=== PATIENT | female | born 1985 | race Hispanic/Latino ===

== ENCOUNTER 2020-02-29 15:20 | Inpatient (IN) | payer OTHER ==
[2020-02-29] MEDS ORDERED: Promethazine HCl 25 MG/ML VIAL IM PRN ×2 (16:05→20:05)
[2020-02-29] MEDS ORDERED: Butorphanol Tartrate 1 MG/ML VIAL SLOW IVP PRN ×2 (16:05→20:05)
[2020-02-29] MEDS ORDERED: hydrALAZINE 20 MG/ML VIAL SLOW IVP PRN ×2 (16:05→20:05)
[2020-02-29] MEDS ORDERED: Ondansetron PF 4 MG/2 ML Vial IVP PRN ×2 (16:05→20:05)
[2020-02-29] MEDS ORDERED: Lactated Ringer's 1,000 ML IV SCH (16:15)
[2020-02-29] MEDS: NIFEdipine 10 MG CAP PO SCH ×3 (16:43→17:27)
[2020-02-29] MEDS: Lactated Ringer's 1,000 ML IV SCH (16:46)
[2020-02-29 16:48] LABS: Hemoglobin 13.9 g/dL (12.0-16.0); Mean Corpuscular HGB CONC 35.3 g/dL (32.0-36.0); Mean Corpuscular Hemoglobin 33.6 pg (27.0-31.0); Mean Corpuscular Volume 95.2 fL (78.0-98.0); Mean Platelet Volume 8.1 fL (7.4-10.4); Platelet Count 221 thou/uL (130-400); RBC Distribution Width 11.6 % (11.5-14.5); Red Blood Cell (RBC) Count 4.15 mill/uL (4.20-5.40); White Blood Cell (WBC) Count 17.1 thou/uL (4.8-10.8)
[2020-02-29 17:25] VITALS: BMI 25.7
[2020-02-29 17:29] LABS: HBSAg Index 0.19 S/CO (0-0.99); Hep B Surf Ag Non-Reactive S/CO (NonReactive); Syphilis Antibody Nonreactive (Nonreactive); Syphilis Antibody Index 0.06 S/CO (<1.00 Non-Reactive)
--- NOTE | 2020-02-29 19:41 | PDOC.LDHP ---
Labor and Delivery H&P Chief complaint: contractions HPI: Patient was seen at [facility] for routine PNV. At the time she reported contractions that started yesterday at work and worsening last night when she was home. She states her stomach is tight and hard and she also has middle back pain. It is coming and going but feels hard most of the time. She had a PTL workup completed at [facility] to include a UA, CL, fFN, and a dose of betamethosone. She sent to L&D due to contractions every 1.2 mins in office. Current gestational age (weeks): 28 Due date: 05/18/20 Dating criteria: last menstrual period Grav: 1 Para: 0 Current complications: other ( contractions) Abnormal US findings: No Current medications: pre- vitamins Previous surgical history: other ([place] tooth extraction) Allergies/Adverse Reactions: Allergies Allergy/AdvReac Type Severity Reaction Status Date / Time No Known Allergies Allergy Verified 02/29/20 16:22 Social history: none - Physical Exam Vital signs reviewed and normal: yes General: NAD Lungs: nonlabored breathing Abdomen: gravid FHT: category 1 Fowler contractions every: 2-3 mins - Vaginal Exam cm dilated: 2 Effacement: 50% Station: -3 - OB Labs Blood type: O RH: positive Antibody Screen: negative HIV: negative RPR: negative HEPSAg: negative GBS: unknown Urine drug screen: negative Additional Labs: CL 2.74, no funneling UA Neg fFN - Neg. VPIII - pending - Assessment premature contractions BREECH presentation - Plan Plan: observation in L&D -: Steroids given at 1454 x1. Repeat dose in 24 hours. [facility] for neuroprotection with evidence of cervical change Nifedipine labor protocol 1L IV bolus and 125mL/hr after I have consulted with Dr. Maurice the OB hospitalist and he agrees with POC.
[2020-02-29 19:43] LABS: SARS-CoV-2 NAA Rapid Test Not Detected (NotDetected)
[2020-02-29] MEDS ORDERED: Magnesium Sulfate 20 gm/500 ml 20 GM/500 ML BAG ONE (19:53)
[2020-02-29] MEDS ORDERED: Calcium Gluc 4.6 MEQ/10 ML (100 MG/ML) SLOW IVP PRN (20:05)
[2020-02-29] MEDS ORDERED: Lidocaine 1% (PF) 30 ML VIAL SC PRN (20:05)
[2020-02-29] MEDS ORDERED: Magnesium Sulfate 20 GM/WATER 500 ML BAG IVPB SCH (20:15)
[2020-02-29] MEDS: Magnesium Sulfate 20 gm/500 ml 20 GM/500 ML BAG IVPB SCH (20:17)
[2020-02-29] MEDS ORDERED: Penicillin G Potassium 5 MILL.UNITS in Sodium Chloride 0.9% 100 ML IVPB SCH (20:30)
[2020-03-01] MEDS: NIFEdipine 10 MG CAP PO SCH ×6 (00:26→22:44)
[2020-03-01] MEDS: Penicillin G 2.5 MILL.units 2.5 MILL.UNITS in Premix Bag 1 BAG IVPB SCH ×5 (01:17→18:24)
[2020-03-01] MEDS: Magnesium Sulfate 20 gm/500 ml 20 GM/500 ML BAG IVPB SCH ×3 (04:32→14:19)
[2020-03-01] MEDS: Lactated Ringer's 1,000 ML IV SCH ×8 (04:35→22:44)
--- NOTE | 2020-03-01 07:59 | CON ---
DATE OF CONSULTATION: 03/01/2020 TIME OF SERVICE: 0715 hours. CONSULTING PHYSICIAN: Richard Maurice MD REASON FOR CONSULTATION: labor, 28 weeks 6 days. 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 She was seen by Divya Dominguez at her clinic yesterday afternoon, complaining of contractions. She was noted to have a shortened cervix at 2.5-3 cm with palpable contractions and was sent over for evaluation. Upon presentation to Labor and Delivery, she was found to have a cervix that was 250 and -3, digitally cindy breech presentation. The patient underwent IV hydration and nifedipine for contractions, which were unsuccessful in complete cessation. She received first dose of betamethasone in the office yesterday at 1450 hours. SIGN FABRICATOR HISTORY: Primigravida. Blood type O positive. Antibody negative. Pap negative. Rubella immune. VDRL nonreactive. Hepatitis B, GC, chlamydia negative. Normal NIPT. EDC 05/18/2020. PAST MEDICAL HISTORY: None. PAST SURGICAL HISTORY: [place]. ALLERGIES: DENIES. MEDICATIONS: vitamins. SOCIAL HISTORY: Denies tobacco, alcohol, or IV drug abuse. FAMILY HISTORY: Noncontributory. REVIEW OF SYSTEMS: Noncontributory. PHYSICAL EXAMINATION: GENERAL: White female, resting comfortably at this time. VITAL SIGNS: Blood pressure 122/82, pulse 85, respirations 18, and temperature 98.1. HEENT: Within normal limits LUNGS: Clear to auscultation bilaterally. HEART: Regular rate and rhythm. ABDOMEN: Soft, nontender. Fundal height 29. FHTs 140s. Vulva, without lesions. Vagina, without discharge. Cervix 2, 50, -2, RN exam. EXTREMITIES: Without clubbing, cyanosis, or edema. LABORATORY DATA: White count 17.1, hematocrit 39.5. Magnesium 6.1 this morning. COVID negative. Hepatitis B, negative. Syphilis, negative. The patient did not respond to IV hydration. I was consulted and instructed to go ahead and proceed with magnesium sulfate for neuro protection as well as group B strep prophylaxis. The patient was given penicillin per protocol and magnesium per protocol over approximately the last 11 to 12 hours. PLAN: Continue magnesium and antibiotics until second dose of corticosteroids are given. At that point in time, would consider discontinuation and observation in hospital. If infant was noted to be in breech presentation, would proceed with primary delivery if labor advances. Would be eligible for rescue dose of corticosteroids at approximately 32-1/2 weeks if continues and worries for labor continue. Job ID: [id number]
[2020-03-01 12:05] LABS: ALT (SGPT) 12 U/L (8-55); AST (SGOT) 17 U/L (5-34); Albumin 3.5 g/dL (3.5-5.0); Alkaline Phosphatase 110 U/L (40-110); Anion Gap 14 mmol/L (10-20); BUN (Urea Nitrogen) 5 mg/dL (7.0-18.7); Bilirubin, Total 0.6 mg/dL (0.2-1.2); Calc. Creatinine Clearance 155 mL/min (70-130); Calcium 6.7 mg/dL (7.8-10.44); Carbon Dioxide 19 mmol/L (22-29); Chloride 100 mmol/L (98-107); Estimated GFR-MDRD Greater than 90; Globulin 2.9 g/dL (2.4-3.5); Glucose 118 mg/dL (70-105); Magnesium 6.2 mg/dL (1.6-2.6); Potassium 3.3 mmol/L (3.5-5.1); Protein, Total 6.4 g/dL (6.0-8.3); Sodium 130 mmol/L (136-145)
[2020-03-01] MEDS ORDERED: Betamet Acet/Betamet Na Ph 30 MG/5 ML VIAL ONE (13:56)
[2020-03-01] MEDS: Potassium Bicarbonate/Cit Ac 25 MEQ TAB PO SCH ×2 (13:58→18:32)
[2020-03-02] MEDS: Lactated Ringer's 1,000 ML IV SCH ×2 (04:35→11:11)
[2020-03-02 06:33] LABS: ALT (SGPT) 11 U/L (8-55); AST (SGOT) 13 U/L (5-34); Albumin 3.2 g/dL (3.5-5.0); Alkaline Phosphatase 100 U/L (40-110); Anion Gap 12 mmol/L (10-20); BUN (Urea Nitrogen) 7 mg/dL (7.0-18.7); Bilirubin, Total 0.3 mg/dL (0.2-1.2); Calc. Creatinine Clearance 155 mL/min (70-130); Calcium 7.4 mg/dL (7.8-10.44); Carbon Dioxide 20 mmol/L (22-29); Chloride 107 mmol/L (98-107); Estimated GFR-MDRD Greater than 90; Globulin 2.4 g/dL (2.4-3.5); Glucose 129 mg/dL (70-105); Potassium 3.9 mmol/L (3.5-5.1); Protein, Total 5.6 g/dL (6.0-8.3); Sodium 135 mmol/L (136-145)
--- NOTE | 2020-03-02 06:39 | PDOC.LDPN ---
Labor & Delivery Progress Note - Subjective Subjective: comfortable (Patient denies continued contractions. Occasioanlly her belly will get hard, but nothing like it was before. She is comfortable going home. ) - Objective Vital signs reviewed and normal: yes General: NAD, resting Uterine fundus: non tender Plan: other (Discharge home with 1 week f/up with Mario Dominguez at [facility]. )
[2020-03-02 08:11] VITALS: TEMP 98.1
[2020-03-02 11:07] VITALS: BP 102/59
== END 2020-03-02 16:35 | disposition home or self-care (01) | DRG 833 ==
LOC: L&D/OP 15:20 → OBSVTOIN 16:05 → L&D 16:05 → 3SE 03-01 19:19
PROVIDERS: ADMIT Obstetrics & Gynecology; ATTEND Obstetrics & Gynecology
DX: O60.03 Preterm labor without delivery, third trimester (principal); Z3A.28 28 weeks gestation of pregnancy; O32.1XX0 Maternal care for breech presentation, not applicable or unspecified; Z20.828 Contact with and (suspected) exposure to other viral communicable diseases
CPT/HCPCS: 36415; 59025; 80053; 82731; 82950; 83735; 85027; 86780; 86850; 86900; 86901; 87340; 87480; 87510; 87660; 99285; G0378; J0702; J2405; J2540; J3475; J3490; U0002